=== PATIENT | male | born 1980 | race Caucasian/White ===

== ENCOUNTER 2020-03-06 08:20 | Emergency (ER) | payer MEDICAID ==
[~2020-03-06] VITALS: Ht 167.6 cm; Wt 86.4 kg
[~2020-03-06 08:20] MED LIST: ASPI325T17 PO
--- NOTE | 2020-03-06 10:23 | NUR ---
patient arrives to er feeling like he has been "punched" in left rib cage/flank area for two days now. no trauma and no visible bruises.
[2020-03-06 11:45] VITALS: BP 126/78
== END 2020-03-06 11:47 | disposition home or self-care (01) ==
LOC: ED 10:21
DX: S20.212A Contusion of left front wall of thorax, initial encounter (principal); X58.XXXA Exposure to other specified factors, initial encounter; Y93.72 Activity, wrestling; Y92.89 Other specified places as the place of occurrence of the external cause; Y99.8 Other external cause status
CPT/HCPCS: 99283

== ENCOUNTER 2021-04-16 08:07 | Emergency (ER) | payer MEDICAID ==
[~2021-04-16] VITALS: Ht 167.6 cm; Wt 88.5 kg
[2021-04-16 08:14] VITALS: BP 137/86
== END 2021-04-16 08:57 | disposition home or self-care (01) ==
LOC: ED 08:48
DX: J00 Acute nasopharyngitis [common cold] (principal); J06.9 Acute upper respiratory infection, unspecified; Z20.822 Contact with and (suspected) exposure to COVID-19; I25.2 Old myocardial infarction; E78.5 Hyperlipidemia, unspecified
CPT/HCPCS: 99283; U0003; U0005